=== PATIENT | male | born 1935 | race Caucasian/White ===

== ENCOUNTER 2017-05-06 11:43 | Outpatient (CLI) | payer MEDICARE, MEDICAID | END 2017-05-06 11:44 | disposition critical access hospital (66) | LOC: EMS 11:43 | PROVIDERS: ATTEND Surgery | DX: R10.9 Unspecified abdominal pain (principal) | CPT/HCPCS: A0425; A0427 ==

== ENCOUNTER 2017-05-06 12:03 | Emergency (ER) | payer MEDICARE, MEDICAID ==
--- NOTE | 2017-05-06 12:28 | ED Physician Documentation ---
PD HPI ABD PAIN - Stated complaint Stated Complaint: ABD PAIN - History obtained from History obtained from: Patient - History of Present Illness Timing - onset: How many hours ago (1) Timing - duration: Hours (1) Timing - details: Abrupt onset, Now resolved (improving enroute and feeling mostly gone by the time of ED arrival. Had abrupt onset of upper abd pain an hour [employer]ENT.) Quality: Cramping, Pain (steady). No: Sharp Location: RUQ, Epigastric Radiation: No: Chest, Right flank, Upper back Associated symptoms: Nausea. No: Fever, Vomiting, Diarrhea, Constipation (had BM yesterday that was somewhat firm and strained, but no constipation per se.), Near syncope / syncope, Loss of appetite, Weight loss Similar symptoms before: Has not had sx before Recently seen: Not recently seen Review of Systems Constitutional: denies: Fever, Chills, Myalgias Nose: denies: Rhinorrhea / runny nose, Congestion Throat: denies: Sore throat Cardiac: denies: Chest pain / pressure, Palpitations Respiratory: denies: Dyspnea, Cough GI: reports: Abdominal Pain, Nausea. denies: Abdominal Swelling, Vomiting, Constipation, Diarrhea : denies: Dysuria, Frequency Skin: denies: Rash Musculoskeletal: denies: Neck pain, Back pain PD PAST MEDICAL HISTORY - Past Medical History Cardiovascular: Hypertension, High cholesterol, Coronary artery disease Neuro: CVA GI: GERD - Past Surgical History Past Surgical History: Yes Cardiovascular: CABG - Present Medications Home Medications: Ambulatory Orders Medication Instructions Recorded Confirmed Aspirin [Low Dose Aspirin EC] 81 mg PO DAILY 07/22/14 10/22/15 Atorvastatin [Lipitor] 40 mg PO DAILY 07/22/14 10/22/15 Bisacodyl [Ducodyl] 10 mg PO DAILY 07/22/14 10/22/15 Docusate Sodium 100 mg PO DAILY 07/22/14 10/23/15 Lisinopril 10 mg PO DAILY 07/22/14 10/22/15 Morphine Sulfate [Ms Contin] 15 mg PO BID #14 tablet.er 07/22/14 10/22/15 Polyethylene Glycol 3350 [Miralax] 17 gm PO DAILY PRN 07/22/14 10/22/15 Potassium Chloride [Micro-K] 10 meq PO DAILY 07/22/14 10/22/15 Sertraline [Zoloft] 25 mg PO DAILY 07/22/14 10/22/15 oxyCODONE [Roxicodone] 5 - 10 mg PO Q4H PRN 07/22/14 10/23/15 Acetaminophen 1 tab PO Q4HR PRN 01/07/15 10/22/15 Acetaminophen [Tylenol] 650 mg PO Q6HR PRN 01/07/15 10/22/15 Tamsulosin [Flomax] 0.8 mg PO DAILY 01/07/15 10/22/15 Ondansetron [Zofran] 8 mg TL Q8H PRN 10/23/15 10/23/15 Oxycodone HCl/Acetaminophen 1 - 2 tab PO Q4H PRN #15 tablet 03/07/16 [Percocet 5-325 mg Tablet] Dicyclomine [Bentyl] 20 mg PO QID PRN #20 capsule 05/06/17 Docusate Sodium 100 mg PO DAILY #30 capsule 05/06/17 - Allergies Allergies/Adverse Reactions: Allergies Allergy/AdvReac Type Severity Reaction Status Date / Time hydrochlorothiazide AdvReac Unknown Verified 03/07/16 19:14 - Social History Does the pt smoke?: No Smoking Status: Former smoker Does the pt drink ETOH?: No Does the pt have substance abuse?: No - Family History Family history: reports: Non contributory - Immunizations Immunizations are current?: Yes - POLST Patient has POLST: Yes PD ED PE NORMAL - Vitals Vital signs reviewed: Yes - General General: Alert and oriented X 3, No acute distress, Well developed/nourished - HEENT HEENT: PERRL, Pharynx benign - Neck Neck: Supple, no meningeal sign, No adenopathy - Cardiac Cardiac: RRR, No murmur - Respiratory Respiratory: Clear bilaterally - Abdomen Abdomen: Normal bowel sounds, Soft, Non tender, Non distended, No organomegaly - Male Male : Deferred - Rectal Rectal: Deferred - Back Back: No CVA TTP - Derm Derm: Normal color - Extremities Extremities: No deformity, No tenderness to palpate, No edema, No calf tenderness / cord - Neuro Neuro: Alert and oriented X 3, No motor deficit, Normal speech Results - Vitals Vitals: Oxygen O2 Source [Without Activity] Room air O2 Source Room air - Labs Labs: Laboratory Tests 05/06/17 05/06/17 05/06/17 12:44 12:56 12:56 WBC 8.6 RBC 4.31 L Hgb 11.5 L Hct 34.4 L MCV 79.9 L MCH 26.8 L MCHC 33.5 RDW 16.9 H Plt Count 163 MPV 7.9 Neut # 7.3 H Lymph # 0.5 L [place] # 0.6 Eos # 0.1 Baso # 0.1 Absolute Nucleated RBC 0.00 Nucleated RBC % 0.0 Sodium 137 Potassium 4.1 Chloride 104 Carbon Dioxide 26 Anion Gap 7.0 BUN 30 H Creatinine 1.6 H Estimated GFR (MDRD) 42 L Glucose 128 H Lactic Acid 1.2 Calcium 8.2 L Total Bilirubin 0.9 AST 83 H ALT 53 Alkaline Phosphatase 107 Total Protein 6.4 L Albumin 3.3 Globulin 3.1 Albumin/Globulin Ratio 1.1 Lipase 25 - Rads (name of study) abd U/S RUQ Radiology: Prelim report reviewed (sludge in neck. No signs of infection. CBD 5 mm. ) PD MEDICAL DECISION MAKING - ED course Complexity details: reviewed results, considered differential (transient severe upper abd pain. Presume colic of intestine (like gas or constipation) or possible biliary colic. U/S showing sludge in neck without signs of cholecystitis. ), d/w patient Departure - Departure Disposition: 01 Home, Self Care Clinical Impression: Biliary colic Abdominal pain Qualifiers: Abdominal location: upper abdomen, unspecified Qualified Code(s): R10.10 - Upper abdominal pain, unspecified Condition: Stable Record reviewed to determine appropriate education?: Yes Instructions: ED Abdominal Pain Gallstone Poss Follow-Up: Amado Rutledge MD [Primary Care Provider] - Prescriptions: Dicyclomine [Bentyl] 20 mg PO QID PRN #20 capsule PRN Reason: Spasms Docusate Sodium 100 mg PO DAILY #30 capsule Comments: I think your abdominal pain episode was from spasming of the gallbladder. There is a little bit of sludge in the neck of the gallbladder right now. However this is a common finding and may not have been the cause. Alternative we would consider intestinal spasm so would suggest drinking lots of fluids to maintain good hydration and also a daily stool softener of docusate. Recheck if recurrent episodes. If you have recurrent episode you can take dicyclomine which decreases spasms of the intestine and gallbladder. Return if severe again. Discharge Date/Time: 05/06/17 14:46
[2017-05-06] MEDS ORDERED: KETOROLAC 15 MG/ML VIAL IVP STA (12:44)
[2017-05-06] MEDS ORDERED: DOCUSATE SODIUM 100 MG CAPSULE PO STA (12:44)
[2017-05-06 13:04] LABS: BASOPHILS # (AUTO) 0.1 10^3/uL (0.0-0.1); BASOPHILS % (AUTO) 0.9 %; EOSINOPHILS # (AUTO) 0.1 10^3/uL (0.0-0.7); EOSINOPHILS % (AUTO) 0.9 %; HGB - HEMOGLOBIN 11.5 g/dL (14.0-18.0); LYMPHOCYTES # (AUTO) 0.5 10^3/uL (1.5-3.5); LYMPHOCYTES % (AUTO) 6.3 %; MEAN CORPUSCULAR HEMOGLOBIN 26.8 pg (27.0-31.0); MEAN CORPUSCULAR HGB CONC 33.5 g/dL (32.0-36.0); MEAN CORPUSCULAR VOLUME 79.9 fL (80.0-94.0); MEAN PLATELET VOLUME 7.9 fL (7.4-11.4); MONOCYTES # (AUTO) 0.6 10^3/uL (0.0-1.0); MONOCYTES % (AUTO) 7.2 %; NEUTROPHILS # (AUTO) 7.3 10^3/uL (1.5-6.6); NEUTROPHILS % (AUTO) 84.7 %; PLT - PLATELET COUNT 163 10^3/uL (130-450); RED BLOOD COUNT 4.31 10^6/uL (4.70-6.10); RED CELL DISTRIBUTION WIDTH 16.9 % (12.0-15.0); WHITE BLOOD COUNT 8.6 x10^3/uL (4.8-10.8)
[2017-05-06 13:14] LABS: ALBUMIN 3.3 g/dL (3.2-5.5); ALBUMIN/GLOBULIN RATIO 1.1 (1.0-2.2); BILIRUBIN,TOTAL 0.9 mg/dL (0.2-1.0); CALCIUM 8.2 mg/dL (8.5-10.3); CREATININE 1.6 mg/dL (0.6-1.2); TOTAL PROTEIN 6.4 g/dL (6.7-8.2)
[2017-05-06 14:38] VITALS: BP 165/66
--- NOTE | 2017-05-10 15:17 | Ultrasound Report ---
DATE OF SERVICE: 05/06/2017 RIGHT UPPER QUADRANT ULTRASOUND: 05/06/2017 CLINICAL INDICATION: Severe pain. COMPARISON: CT 03/07/2016. TECHNIQUE: Real-time scanning was performed with franchise sales representative static images obtained. FINDINGS: The liver measures 14.4 cm. Multiple hepatic cysts are noted. No solid hepatic lesion or intrahepatic biliary dilatation is present. The common bile duct measures 5 mm. The gallbladder dem onstrates echogenic sludge within the neck of the gallbladder. No wall thickening or pericholecystic fluid is present. The right kidney measures 12.1 cm, and demonstrates no hydronephrosis. No free fluid is seen. IMPRESSION: Sludge within the neck of the gallbladder. Incidental hepatic cysts. TD: 05/06/2017 22:39
== END 2017-05-06 14:46 | disposition home or self-care (01) ==
LOC: EDUNIT# → ED 12:03 → SUPCPDRO 12:03 → ED 14:46
DX: K80.50 Calculus of bile duct without cholangitis or cholecystitis without obstruction (principal); I10 Essential (primary) hypertension; E78.00 Pure hypercholesterolemia, unspecified; I25.10 Atherosclerotic heart disease of native coronary artery without angina pectoris; Z95.1 Presence of aortocoronary bypass graft; K21.9 Gastro-esophageal reflux disease without esophagitis; Z86.73 Personal history of transient ischemic attack (TIA), and cerebral infarction without residual deficits; Z79.82 Long term (current) use of aspirin; Z87.891 Personal history of nicotine dependence
CPT/HCPCS: 36415; 76705; 80053; 83605; 83690; 85025; 96374; 99283; 99284; A9270

== ENCOUNTER 2018-02-13 19:45 | Outpatient (CLI) | payer MEDICARE, MEDICAID | END 2018-02-13 19:46 | disposition critical access hospital (66) | LOC: EMS 19:45 | PROVIDERS: ATTEND Surgery | DX: R40.20 Unspecified coma (principal) | CPT/HCPCS: A0425; A0427 ==

== ENCOUNTER 2018-02-13 20:02 | Emergency (ER) | payer MEDICARE, MEDICAID ==
[2018-02-13] MEDS ORDERED: NALOXONE 0.4 MG/ML VIAL IVP STA (20:20)
--- NOTE | 2018-02-13 20:20 | ED Physician Documentation ---
History of Present Illness - Stated complaint Stated Complaint: UNRESPONSIVE - Chief complaint Chief Complaint: Neuro - History obtained from History obtained from: EMS - History of Present Illness Timing: Today - Additonal information Additional information: 82-year-old male resident of [facility] is been last seen normal at 4 PM and this evening was found unresponsive in his room. He has a POLST form indicating comfort measures only and no transport. Medics found the patient on the ground and agonal respirations and medical control recommended transport to the hospital. The patient arrives to the emergency department vomiting coffee- ground emesis unconscious poor respiratory effort with pinpoint pupils and this is after 4 mg of Narcan given in the field. At the time of arrival oxygen is indicated by the patient's POLST form other measures will need to be discussed with the family. Review of Systems Unable to obtain: Unresponsive PD PAST MEDICAL HISTORY - Past Medical History Cardiovascular: Hypertension, High cholesterol, Coronary artery disease GI: GERD - Past Surgical History Past Surgical History: Yes Cardiovascular: CABG - Present Medications Home Medications: Ambulatory Orders Medication Instructions Recorded Confirmed Aspirin [Low Dose Aspirin EC] 81 mg PO DAILY 07/22/14 10/22/15 Atorvastatin [Lipitor] 40 mg PO DAILY 07/22/14 10/22/15 Bisacodyl [Ducodyl] 10 mg PO DAILY 07/22/14 10/22/15 Docusate Sodium 100 mg PO DAILY 07/22/14 10/23/15 Lisinopril 10 mg PO DAILY 07/22/14 10/22/15 Morphine Sulfate [Ms Contin] 15 mg PO BID #14 tablet.er 07/22/14 10/22/15 Polyethylene Glycol 3350 [Miralax] 17 gm PO DAILY PRN 07/22/14 10/22/15 Potassium Chloride [Micro-K] 10 meq PO DAILY 07/22/14 10/22/15 Sertraline [Zoloft] 25 mg PO DAILY 07/22/14 10/22/15 oxyCODONE [Roxicodone] 5 - 10 mg PO Q4H PRN 07/22/14 10/23/15 Acetaminophen 1 tab PO Q4HR PRN 01/07/15 10/22/15 Acetaminophen [Tylenol] 650 mg PO Q6HR PRN 01/07/15 10/22/15 Tamsulosin [Flomax] 0.8 mg PO DAILY 01/07/15 10/22/15 Ondansetron [Zofran] 8 mg TL Q8H PRN 10/23/15 10/23/15 Oxycodone HCl/Acetaminophen 1 - 2 tab PO Q4H PRN #15 tablet 03/07/16 [Percocet 5-325 mg Tablet] Dicyclomine [Bentyl] 20 mg PO QID PRN #20 capsule 05/06/17 Docusate Sodium 100 mg PO DAILY #30 capsule 05/06/17 - Allergies Allergies/Adverse Reactions: Allergies Allergy/AdvReac Type Severity Reaction Status Date / Time hydrochlorothiazide AdvReac Unknown Verified 03/07/16 19:14 - Social History Does the pt smoke?: No Smoking Status: Former smoker Does the pt drink ETOH?: No Does the pt have substance abuse?: No - Immunizations Immunizations are current?: Yes - POLST Patient has POLST: Yes PD ED PE NORMAL - Vitals Vital signs reviewed: Yes (incompatable with extended life severe hypoxia, 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 ) - Neck Neck: Other (neck is in a C-collar ) - Cardiac Cardiac: Other (bradycardic without murmer) - Respiratory Respiratory: Other (poor effort improves with bagging and airway clearing and narcan. ) - Abdomen Abdomen: Soft, Non tender - Extremities Extremities: No deformity, No edema - Neuro Neuro: Other (unresponsive and flaccid) Eye Opening: None Motor: None Verbal: None GCS Score: 3 Results - Vitals Vitals: Vital Signs - 24 hr 02/13/18 20:01 Temperature 36.4 C L Heart Rate 45 L Respiratory 11 L Rate Blood Pressure 73/36 L O2 Saturation 56 L Oxygen O2 Source [Without Activity] Room air O2 Source Room air - EKG (time done) 2021 Rate: Rate (enter#) (98) Rhythm: Atrial fibrillation Intervals: Wide QRS Ischemia: ST depression (global consistent with ischemia) Compare to prior EKG: Changed from prior EKG Procedures - IVC sono (time) 2037 Bedside IVC sono: IVC measures (cm) (2.68), IVC collapsed c insp (cm) (2.68), High CVP (consistent with failure) PD MEDICAL DECISION MAKING - ED course Complexity details: reviewed old records, reviewed results, re-evaluated patient, considered differential ED course: 82-year-old male presents to the emergency department today with what appears to be a terminal event. He appears to have ST depression in multiple leads consistent with an event that is led to some cardiac ischemia. He appears to have some failure on his chest x-ray. He has vomiting some coffee-ground material. He does have a POLST form that indicates comfort measures only and no transport to the hospital.. There is no family available for confirmation or direction and treatment. The patient has some continued agonal respirations and pinpoint pupils. A second dose of 2 mg of Narcan is administered again with some improvement in his respiratory effort but not with improvement in anything else. The nursing instructor at [facility] ([place]) was contacted in the case regarding this patient's advanced directives. 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 His medications are administered by staff. She does not believe there is reason to think he would have overdosed on narcotic. She also states that she knows his wishes and he would not want to be resuscitated from an insult such as this. Dr. Farhat Girard is consulted in the case and is willing to admit the patient into the hospital to allow the patient to . He recommends administration of 2 L nasal cannula oxygen and not placing the patient on a rebreather mask or using bag valve mask. The patient does eventually in the emergency department and appears comfortable at the time of his expiration. - Sepsis Event Vital Signs: Vital Signs - 24 hr 02/13/18 20:01 Temperature 36.4 C L Heart Rate 45 L Respiratory 11 L Rate Blood Pressure 73/36 L O2 Saturation 56 L Oxygen O2 Source [Without Activity] Room air O2 Source Room air Departure - Departure Disposition: 20 Clinical Impression: Cardiopulmonary arrest
[2018-02-13 20:23] LABS: BASOPHILS # (AUTO) 0.1 10^3/uL (0.0-0.1); BASOPHILS % (AUTO) 0.5 %; EOSINOPHILS # (AUTO) 0.1 10^3/uL (0.0-0.7); EOSINOPHILS % (AUTO) 0.5 %; LYMPHOCYTES # (AUTO) 1.9 10^3/uL (1.5-3.5); LYMPHOCYTES % (AUTO) 15.1 %; MEAN CORPUSCULAR HEMOGLOBIN 27.2 pg (27.0-31.0); MEAN CORPUSCULAR VOLUME 84.8 fL (80.0-94.0); MEAN PLATELET VOLUME 8.3 fL (7.4-11.4); MONOCYTES # (AUTO) 0.7 10^3/uL (0.0-1.0); MONOCYTES % (AUTO) 5.9 %; NEUTROPHILS # (AUTO) 9.7 10^3/uL (1.5-6.6); PLT - PLATELET COUNT 187 10^3/uL (130-450); RED BLOOD COUNT 4.43 10^6/uL (4.70-6.10); RED CELL DISTRIBUTION WIDTH 16.9 % (12.0-15.0); WHITE BLOOD COUNT 12.4 x10^3/uL (4.8-10.8)
[2018-02-13 20:33] LABS: ALBUMIN 3.5 g/dL (3.2-5.5); ALBUMIN/GLOBULIN RATIO 0.9 (1.0-2.2); BILIRUBIN,TOTAL 0.5 mg/dL (0.2-1.0); CALCIUM 8.1 mg/dL (8.5-10.3); CREATININE 2.1 mg/dL (0.6-1.2); TOTAL PROTEIN 7.3 g/dL (6.7-8.2)
[2018-02-13] MEDS ORDERED: LORazepam 0.5 MG TABLET PO PRN (21:15)
[2018-02-13] MEDS ORDERED: CARBOXYMETHYLCELLULOSE OPHTH DROPS EACHEYE PRN (21:15)
[2018-02-13] MEDS ORDERED: MORPHINE SOL 10 MG/0.5 ML SYRINGE PO PRN (21:15)
[2018-02-13] MEDS ORDERED: ATROPINE 1% OPHTH DROPS 2 ML SL PRN (21:15)
[2018-02-13 22:57] VITALS: BP 0/0
--- NOTE | 2018-02-14 08:50 | XRAY Report ---
Reason: unresponsive/hypoxic Procedure Date: 02/13/2018 Accession Number: [id number] / [id number] Procedure: XR - Chest 1 View X-Ray CPT Code: 69910 FULL RESULT: EXAM: CHEST RADIOGRAPHY EXAM DATE: 02/13/2018 08:36 PM. CLINICAL HISTORY: Unresponsive/hypoxic. COMPARISON: None. TECHNIQUE: 1 view. FINDINGS: Lungs/Pleura: Distended, indistinct pulmonary vascular opacities. There is no pleural effusion or pneumothorax. Mediastinum: Prominent heart size. Status post median sternotomy. Other: None. IMPRESSION: Mild interstitial edema. RADIA
== END 2018-02-13 21:24 | disposition expired ==
LOC: EDUNIT# → ED 20:02
DX: I46.9 Cardiac arrest, cause unspecified (principal); I48.91 Unspecified atrial fibrillation; I10 Essential (primary) hypertension; I25.10 Atherosclerotic heart disease of native coronary artery without angina pectoris; Z79.82 Long term (current) use of aspirin; Z95.1 Presence of aortocoronary bypass graft; Z87.891 Personal history of nicotine dependence
CPT/HCPCS: 36415; 71045; 80053; 83690; 84484; 85025; 93005; 99283; 99284